=== PATIENT | female | born 1955 ===

== ENCOUNTER 2022-05-07 05:15 | Day surgery (SDC) | payer OTHER ==
[~2022-05-07] VITALS: Ht 149.9 cm; Wt 56.2 kg
[~2022-05-07 05:15] MED LIST: ATORVASTATIN CA20 MG PO
== END 2022-05-07 11:40 | disposition home or self-care (01) ==
LOC: CIR.AMB 05:15
PROVIDERS: ATTEND Colon & Rectal Surgery
DX: K64.8 Other hemorrhoids (principal); Z20.822 Contact with and (suspected) exposure to COVID-19; E78.5 Hyperlipidemia, unspecified; Z88.8 Allergy status to other drugs, medicaments and biological substances